=== PATIENT | female | born 1990 | race Caucasian/White ===

== ENCOUNTER 2017-12-08 22:47 | Emergency (ER) | payer OTHER ==
[2017-12-08 22:52] VITALS: BP 117/73
== END 2017-12-08 23:43 | disposition left against medical advice (07) ==
LOC: ED 22:47
DX: S09.90XA Unspecified injury of head, initial encounter (principal); X58.XXXA Exposure to other specified factors, initial encounter; Y92.9 Unspecified place or not applicable; Z53.21 Procedure and treatment not carried out due to patient leaving prior to being seen by health care provider

== ENCOUNTER 2017-12-09 16:42 | Emergency (ER) | payer MEDICAID, OTHER ==
[2017-12-09 16:55] VITALS: BP 105/58
--- NOTE | 2017-12-09 17:59 | UC ---
Head Injury HPI - HPI Summary HPI Summary: Slipped and fell backward last night hitting back of head no loc---has felt tired and head achey all day--no fevers, chills, nausea or vomiting - History Of Current Complaint Chief Complaint: UCHeadInjury Stated Complaint: HEAD INJURY Time Seen by Provider: 12/09/17 17:52 Hx Obtained From: Patient Hx Last Menstrual Period: months ?: No Mechanism Of Injury: fall Onset/Duration: Sudden Onset, Other - happened 1 day ago Severity Currently: Mild Severity Initially: Moderate Character: Dull Aggravating Factor(s): Nothing Alleviating Factor(s): Nothing Associated Signs And Symptoms: Positive: Neck Pain - muscles on right and left side of neck no bone tenderness - Allergies/Home Medications Allergies/Adverse Reactions: Allergies Allergy/AdvReac Type Severity Reaction Status Date / Time Doxycycline AdvReac Vomiting Verified 12/09/17 16:55 Home Medications: Home Medications Escitalopram Oxalate [Lexapro 20 mg] 15 mg PO DAILY 12/09/17 [History Confirmed 12/09/17] PMH/Surg Hx/FS Hx/Imm Hx Previously Healthy: Yes Other History Of: Negative For: Anticoagulant Therapy - Surgical History Surgical History: Yes Surgery Procedure, Year, and Place: , tooth surgery - Family History Known Family History: Positive: Other - fibromyalgia - Social History Occupation: Employed Full-time Lives: With Family Alcohol Use: Occasionally Substance Use Type: None Substance Use Comment - Amount & Last Used: hooka Smoking Status (MU): Former Smoker Have You Smoked in the Last Year: No - Immunization History Most Recent Influenza Vaccination: 09/18/15 Most Recent Tetanus Shot: 07/26/15 Most Recent Pneumonia Vaccination: not indicated Review of Systems Constitutional: Negative Skin: Negative Eyes: Negative ENT: Negative Respiratory: Negative Cardiovascular: Negative Gastrointestinal: Negative Genitourinary: Negative Motor: Negative Neurovascular: Negative Musculoskeletal: Myalgia - muscles in her neck Neurological: Negative Psychological: Negative Is Patient Immunocompromised?: No All Other Systems Reviewed And Are Negative: Yes Physical Exam Triage Information Reviewed: Yes Appearance: Well-Appearing, No Pain Distress, Well-Nourished Vital Signs: Initial Vital Signs Temp 98.1 F 12/09/17 16:48 Pulse 78 12/09/17 16:48 Resp 16 12/09/17 16:48 BP 105/58 12/09/17 16:48 Pulse Ox 99 12/09/17 16:48 Vital Signs Reviewed: Yes Eye Exam: Normal Eyes: Positive: Conjunctiva Clear, Other: - perrla, eomi, fundascopic exam wnl ENT Exam: Normal ENT: Positive: Normal ENT inspection, Hearing grossly normal, Pharynx normal, TMs normal, Uvula midline. Negative: Nasal congestion, Nasal drainage, TM bulging, TM dull, TM red, Tonsillar swelling, Trismus, Muffled voice, Hoarse voice, Dental tenderness, Sinus tenderness Dental Exam: Normal Neck exam: Normal Neck: Positive: Supple, Nontender, No Lymphadenopathy Respiratory Exam: Normal Respiratory: Positive: Chest non-tender, Lungs clear, Normal breath sounds, No respiratory distress, No accessory muscle use Cardiovascular Exam: Normal Cardiovascular: Positive: RRR, No Murmur, Pulses Normal, Brisk Capillary Refill Abdominal Exam: Normal Abdomen Description: Positive: Nontender, No Organomegaly, Soft. Negative: CVA Tenderness (R), CVA Tenderness (L) Bowel Sounds: Positive: Present Musculoskeletal Exam: Normal Musculoskeletal: Positive: Strength Intact, ROM Intact, No Edema Neurological Exam: Normal Neurological: Positive: Alert, Muscle Tone Normal Psychological Exam: Normal Skin Exam: Normal Head Injury Course/Dx - Course Course Of Treatment: rest tylenol ibuprofen follow with pcp prn - Differential Dx/Diagnosis Provider Diagnoses: concussion, hematoma Discharge - Discharge Plan Condition: Stable Disposition: HOME Patient Education Materials: Concussion (ED), Post Concussion Syndrome (ED) Referrals: Miranda Isidro NP [Primary Care Provider] - If Needed
== END 2017-12-09 18:17 | disposition home or self-care (01) ==
LOC: UCEAST 16:42
DX: S06.0X0A Concussion without loss of consciousness, initial encounter (principal); S00.93XA Contusion of unspecified part of head, initial encounter; W01.0XXA Fall on same level from slipping, tripping and stumbling without subsequent striking against object, initial encounter; Y93.9 Activity, unspecified; Y92.9 Unspecified place or not applicable; Z88.1 Allergy status to other antibiotic agents; Z87.891 Personal history of nicotine dependence
CPT/HCPCS: 99211; G0463

== ENCOUNTER 2018-06-18 09:51 | Emergency (ER) | payer OTHER ==
[2018-06-18 10:00] VITALS: BP 97/59
--- NOTE | 2018-06-18 10:09 | UC ---
Throat Pain/Nasal Ernesto HPI - HPI Summary HPI Summary: 27 yo female presents with sinus pain/pressure/congestion, post nasal drip, and headache all getting increasingly worse for the last 5 days. She has felt hot and cold at times, but has not taken her temperature. Has been taking OTC cold and sinus medication without relief. Denies cough, SOB, dizziness. - History of Current Complaint Chief Complaint: UCRespiratory Stated Complaint: SINUS CONGESTION Time Seen by Provider: 06/18/18 10:09 Hx Obtained From: Patient Hx Last Menstrual Period: iud Onset/Duration: Gradual Onset Severity: Moderate Pain Intensity: 5 Pain Scale Used: 0-10 Numeric - Allergies/Home Medications Allergies/Adverse Reactions: Allergies Allergy/AdvReac Type Severity Reaction Status Date / Time doxycycline Allergy Nausea Verified 06/18/18 10:00 PMH/Surg Hx/FS Hx/Imm Hx Previously Healthy: Yes Psychological History: Anxiety Other History Of: Negative For: Anticoagulant Therapy - Surgical History Surgical History: Yes Surgery Procedure, Year, and Place: , tooth surgery - Family History Known Family History: Positive: Other - fibromyalgia - Social History Occupation: Employed Full-time Lives: With Family Alcohol Use: Occasionally Substance Use Type: None Substance Use Comment - Amount & Last Used: hooka Smoking Status (MU): Former Smoker Have You Smoked in the Last Year: No - Immunization History Most Recent Influenza Vaccination: 09/18/15 Most Recent Tetanus Shot: 07/26/15 Most Recent Pneumonia Vaccination: not indicated Review of Systems Constitutional: Chills Skin: Negative Eyes: Negative ENT: Sore Throat, Nasal Discharge, Sinus Congestion, Sinus Pain/Tenderness Respiratory: Negative Cardiovascular: Negative Neurovascular: Negative Neurological: Negative Psychological: Negative All Other Systems Reviewed And Are Negative: Yes Physical Exam - Summary Physical Exam Summary: GENERAL: NAD. WDWN. No pain distress. SKIN: No rashes, sores, lesions, or open wounds. HEENT: Head: AT/NC Eyes: EOM intact. Conjunctiva clear without inflammation or discharge. Ears: Hearing grossly normal. TMs intact, no bulging, erythema, or edema. Nose: Nasal mucosa moderately swollen and erythematous with yellow/ clear discharge. TTP maxillary and frontal sinus. Throat: Posterior oropharynx without exudates, erythema, or tonsillar enlargement. Uvula midline. NECK: Supple. Nontender. No lymphadenopathy. CHEST: CTAB. No r/r/w. No accessory muscle use. Breathing comfortably and in no distress. CV: RRR. Without m/r/g. Pulses intact. Brisk cap refill. NEURO: Alert. CN II-XII grossly intact. PSYCH: Age appropriate behavior. Triage Information Reviewed: Yes Vital Signs: Initial Vital Signs Temp 98 F 06/18/18 09:57 Pulse 70 06/18/18 09:57 Resp 16 06/18/18 09:57 BP 97/59 06/18/18 09:57 Pulse Ox 100 06/18/18 09:57 Throat Pain/Nasal Course/Dx - Course Course Of Treatment: Sinusitis - Differential Dx/Diagnosis Provider Diagnoses: sinusitis Discharge - Sign-Out/Discharge Documenting (check all that apply): Patient Departure - Discharge Plan Condition: Stable Disposition: HOME Prescriptions: Amoxicillin/Clavulanate TAB* [Augmentin TAB 875*] 875 mg PO BID #20 tab Fluticasone NASAL SPRAY 50MCG* [Flonase NASAL SPRAY 50MCG*] 2 spray BOTH NARES DAILY #1 btl Patient Education Materials: Sinusitis (ED) Forms: *Work Release Referrals: Mirnada Isidro NP [Primary Care Provider] - Additional Instructions: If you develop a fever, shortness of breath, chest pain, new or worsening symptoms - please call your PCP or go to the ED. - Billing Disposition and Condition Condition: STABLE Disposition: Home
== END 2018-06-18 10:42 | disposition home or self-care (01) ==
LOC: UCEAST 09:51
DX: J32.9 Chronic sinusitis, unspecified (principal); Z88.1 Allergy status to other antibiotic agents; Z87.891 Personal history of nicotine dependence
CPT/HCPCS: 99212; G0463

== ENCOUNTER 2018-07-19 17:32 | Emergency (ER) | payer OTHER ==
[2018-07-19 17:49] VITALS: BP 98/57
--- NOTE | 2018-07-19 18:17 | UC ---
Ear Complaint HPI - HPI Summary HPI Summary: The patient is a 27 y/o F presenting to [facility] c/o bilateral ear pain and itching for the last few weeks. The pain is rated 4/10 in severity. She has also noticed some discharge from the ears especially in the morning. She denies fevers, chills, and rashes. She has some sinus congestion. - History of Current Complaint Chief Complaint: UCEar Stated Complaint: BLOOD IN EAR Time Seen by Provider: 07/19/18 18:12 Hx Obtained From: Patient Hx Last Menstrual Period: IUD Onset/Duration: Sudden Onset, Lasting Weeks, Still Present Severity Initially: Moderate Severity Currently: Moderate Pain Intensity: 4 Pain Scale Used: 0-10 Numeric Aggravating Factors: Nothing Alleviating Factors: Nothing - Allergies/Home Medications Allergies/Adverse Reactions: Allergies Allergy/AdvReac Type Severity Reaction Status Date / Time doxycycline Allergy Nausea Verified 07/19/18 17:49 PMH/Surg Hx/FS Hx/Imm Hx Other Respiratory History: NEGATIVE: asthma Psychological History: Anxiety, Depression Other History Of: Negative For: Anticoagulant Therapy - Surgical History Surgical History: Yes Surgery Procedure, Year, and Place: , tooth surgery - Family History Known Family History: Positive: Other - fibromyalgia - Social History Alcohol Use: Occasionally Substance Use Type: None Substance Use Comment - Amount & Last Used: hooka Smoking Status (MU): Former Smoker Have You Smoked in the Last Year: No - Immunization History Most Recent Influenza Vaccination: 09/18/15 Most Recent Tetanus Shot: 07/26/15 Most Recent Pneumonia Vaccination: not indicated Review of Systems Constitutional: Other - NEGATIVE: fever, chills Skin: Other - NEGATIVE: rashes ENT: Ear Ache - bilateral with itching, Sinus Congestion, Other - drainage from ears All Other Systems Reviewed And Are Negative: Yes Physical Exam - Summary Physical Exam Summary: VITAL SIGNS: Reviewed. GENERAL: Patient is a well-developed and nourished female who is lying comfortable in the stretcher. Patient is not in any acute respiratory distress. HEAD AND FACE: Normocephalic EYES: PERRLA, EOMI x 2. EARS: Hearing grossly intact, left more than right ear canal swelling and discharge. MOUTH: Oropharynx within normal limits. NECK: Supple, trachea is midline, no adenopathy, no JVD, no carotid bruit. CHEST: Symmetric, no tenderness at palpation LUNGS: Clear to auscultation bilaterally. No wheezing or crackles. CVS: Regular rate and rhythm, S1 and S2 present, no murmurs or gallops appreciated. ABDOMEN: Soft, non-tender. Bowel sounds are normal. No abdominal abnormal pulsations. EXTREMITIES: Full ROM in all major joints, no edema, no cyanosis or clubbing. NEURO: Alert and oriented x 3. No acute neurological deficits. Speech is normal and follows commands. SKIN: Dry and warm. Triage Information Reviewed: Yes Vital Signs: Initial Vital Signs Temp 98.7 F 07/19/18 17:45 Pulse 60 07/19/18 17:45 Resp 12 07/19/18 17:45 BP 98/57 07/19/18 17:45 Pulse Ox 100 07/19/18 17:45 Vital Signs Reviewed: Yes Ear Complaint Course/Dx - Course Course Of Treatment: This patient is a 27-year-old female who presents to the urgent care with chief complaint of bilateral ear pain. The patient reports that she has been using Q-tips yesterday and also a beta gaurav. In the physical exam, the patient has a bilateral otitis externa. The patient was given Corticosporin and she will be discharged home with follow-up with PCP. She was instructed to return to the urgent care or the emergency department if the symptoms worsen. She understands and agrees. - Differential Dx/Diagnosis Provider Diagnoses: bilateral otitis externa Discharge - Sign-Out/Discharge Documenting (check all that apply): Patient Departure - Patient will be discharged home. All imaging exams completed and their final reports reviewed: Yes - Discharge Plan Condition: Stable Disposition: HOME Patient Education Materials: Otitis Externa (DC) Referrals: Miranda Isidro NP [Primary Care Provider] - 3 Days Additional Instructions: Follow up with your primary care physician in 2-3 days. Return to urgent care or the emergency department for any new or worsening symptoms. - Billing Disposition and Condition Condition: STABLE Disposition: Home - Attestation Statements Document Initiated by Scribe: Yes Documenting Scribe: Antoinette Gilliam Provider For Whom Gerardo is Documenting (Include Credential): Sina Loera MD Scribe Attestation: Antoinette Sanchez, selvinibed for Sina Loera MD on 07/21/18 at 0736. Scribe Documentation Reviewed: Yes Provider Attestation: The documentation as recorded by the selvinibeAntoinette accurately reflects the service I personally performed and the decisions made by me, Sina Loera MD
[2018-07-19] MEDS ORDERED: Ciproflox/Dexameth OTIC.SUSP* 7.5 ML BTL BOTH EARS ONE (18:20)
[2018-07-19] MEDS ORDERED: Neomyc/Polym/HC 1% OTIC SUSP* **OTIC BOTH EARS ONE (18:37)
--- NOTE | 2018-07-20 11:00 | UC ---
Discharge - Sign-Out/Discharge Documenting (check all that apply): Post-Discharge Follow Up All imaging exams completed and their final reports reviewed: No Studies - Discharge Plan Condition: Stable Disposition: HOME Patient Education Materials: Otitis Externa (DC) Referrals: Miranda Isidro NP [Primary Care Provider] - 3 Days Additional Instructions: Follow up with your primary care physician in 2-3 days. Return to urgent care or the emergency department for any new or worsening symptoms. - Billing Disposition and Condition Condition: STABLE Disposition: Home
== END 2018-07-19 18:50 | disposition home or self-care (01) ==
LOC: UCEAST 17:32
DX: H60.93 Unspecified otitis externa, bilateral (principal); Z88.1 Allergy status to other antibiotic agents; Z87.891 Personal history of nicotine dependence
CPT/HCPCS: 99212; A9270-GY; G0463

== ENCOUNTER 2018-08-25 12:15 | Emergency (ER) | payer OTHER ==
[2018-08-25 12:31] VITALS: BP 132/79
--- NOTE | 2018-08-25 12:38 | UC ---
UC General HPI - HPI Summary HPI Summary: This pt is a 27 y/o female presenting to [facility] c/o sinus congestion, bilateral ear pain, and headache since 3 days ago. Pt additionally reports sinus pain, decreased hearing. Denies fever, cough, SOB, nausea, vomiting. No PMHx. She notes occasional alcohol use. Pt is a former smoker. - History of Current Complaint Stated Complaint: SINUS COMPLAINT Time Seen by Provider: 08/25/18 12:25 Hx Obtained From: Patient Hx Last Menstrual Period: IUD in place, unsure Onset/Duration: Lasting Days, Still Present Timing: Constant Current Severity: Moderate Pain Intensity: 5 Pain Location at: head Character: headache Aggravating: nothing Alleviating: nothing Associated Signs & Symptoms: Positive: Headache, Other - POS: sinus congestion, decreased hearing, bilateral ear pain, sinus pain. Negative: Abdominal Pain, Cough, Chest Pain, Fever, SOB, Vomiting - Allergy/Home Medications Allergies/Adverse Reactions: Allergies Allergy/AdvReac Type Severity Reaction Status Date / Time doxycycline Allergy Nausea Verified 08/25/18 12:31 PMH/Surg Hx/FS Hx/Imm Hx Previously Healthy: Yes Other Endocrine History: DENIES: diabetes Other Cardiovascular History: DENIES: HTN Other History Of: Negative For: Anticoagulant Therapy - Surgical History Surgical History: Yes Surgery Procedure, Year, and Place: , tooth surgery - Family History Known Family History: Positive: Other - fibromyalgia - Social History Alcohol Use: Occasionally Substance Use Type: None Substance Use Comment - Amount & Last Used: hooka Smoking Status (MU): Former Smoker Have You Smoked in the Last Year: No - Immunization History Most Recent Influenza Vaccination: 09/18/15 Most Recent Tetanus Shot: 07/26/15 Most Recent Pneumonia Vaccination: not indicated Review of Systems Constitutional: Negative Skin: Negative Eyes: Negative ENT: Ear Ache - bilateral, Sinus Congestion, Sinus Pain/Tenderness, Other - POS : decreased hearing Respiratory: Negative Cardiovascular: Negative Gastrointestinal: Negative Genitourinary: Negative Motor: Negative Neurovascular: Negative Musculoskeletal: Negative Neurological: Headache Psychological: Negative Is Patient Immunocompromised?: No All Other Systems Reviewed And Are Negative: Yes Physical Exam - Summary Physical Exam Summary: VITAL SIGNS: Reviewed. GENERAL: Patient is a well-developed and nourished female who is lying comfortable in the stretcher. Patient is not in any acute respiratory distress. HEAD AND FACE: Normocephalic EYES: PERRLA, EOMI x 2. EARS: Hearing grossly intact. MOUTH: Pharyngeal erythema. NECK: Supple, trachea is midline, no adenopathy, no JVD, no carotid bruit. CHEST: Symmetric, no tenderness at palpation LUNGS: Clear to auscultation bilaterally. No wheezing or crackles. CVS: Regular rate and rhythm, S1 and S2 present, no murmurs or gallops appreciated. ABDOMEN: Soft, non-tender. Bowel sounds are normal. No abdominal abnormal pulsations. EXTREMITIES: Full ROM in all major joints, no edema, no cyanosis or clubbing. NEURO: Alert and oriented x 3. No acute neurological deficits. Speech is normal and follows commands. SKIN: Dry and warm Triage Information Reviewed: Yes Vital Signs: Initial Vital Signs Temp 98.3 F 08/25/18 12:22 Pulse 75 08/25/18 12:22 Resp 18 08/25/18 12:22 BP 132/79 08/25/18 12:22 Pulse Ox 100 08/25/18 12:22 Vital Signs Reviewed: Yes Course/Dx - Course Course Of Treatment: Pt is a 27 y/o female presenting to [facility] c/o sinus congestion, bilateral ear pain, and headache since 3 days ago. Pt additionally reports sinus pain, decreased hearing. Denies fever, cough, SOB, nausea, vomiting. No PMHx. Rapid strep is negative. I believe the patient has a viral infection. Therefore the patient was given Flonase and Sudafed for the nasal congestion. The patient will be discharged home with follow-up with primary care physician. She was recommended to return to the urgent care if she develops any headache, fevers, nausea vomiting. The patient understands and agrees. Pt is hemodynamically stable, alert and oriented x3. The patient was found to have increased blood pressure in UC. The patient will follow up with PCP for better control of BP. - Differential Dx - Multi-Symptom Provider Diagnoses: URI Discharge - Sign-Out/Discharge Documenting (check all that apply): Patient Departure - Discharge home All imaging exams completed and their final reports reviewed: No Studies - Discharge Plan Condition: Stable Disposition: HOME Prescriptions: Fluticasone NASAL SPRAY 50MCG* [Flonase NASAL SPRAY 50MCG*] 2 spray BOTH NARES DAILY #1 btl Pseudoephedrine TAB* [Sudafed TAB*] 60 mg PO BID #10 tab Patient Education Materials: Upper Respiratory Infection (DC), Cold Symptoms ( ED) Referrals: Miranda Isidro NP [Primary Care Provider] - Additional Instructions: .Take medications as instructed and adhere to plan Take Acetaminophen or ibuprofen for pain or fever Increase your fluid intake Return to the or go to the emergency department if symptoms worsen Follow-up with primary care physician in next 2-3 days - Billing Disposition and Condition Condition: STABLE Disposition: Home - Attestation Statements Document Initiated by Yonasibe: Yes Documenting Scribe: Mandi Nails Provider For Whom Gerardo is Documenting (Include Credential): Sina Loera MD Scribe Attestation: Mandi Sanchez, scribed for Sina Loera MD on 08/25/18 at 1420. Scribe Documentation Reviewed: Yes Provider Attestation: The documentation as recorded by the Mandi cid accurately reflects the service I personally performed and the decisions made by , Sina Loera MD
== END 2018-08-25 13:05 | disposition home or self-care (01) ==
LOC: UCEAST 12:15
DX: J06.9 Acute upper respiratory infection, unspecified (principal); Z88.1 Allergy status to other antibiotic agents; Z87.891 Personal history of nicotine dependence
CPT/HCPCS: 87651; 99212; G0463

== ENCOUNTER 2019-02-04 09:37 | Emergency (ER) | payer OTHER ==
--- NOTE | 2019-02-04 11:46 | UC ---
Throat Pain/Nasal Ernesto HPI - HPI Summary HPI Summary: 28 y/o female presents to the urgent care c/o nasal congestion, sinus pressure and pain w/ green nasal discharge and PND for the past week. Pain is 5/10. Pt has taken Sudafed and Dayquill PO to alleviate symptoms w/o any improvement. Pt w/ PMHX of recurrent sinusitis. Pt denies fever. dizziness. ear pain, SOB, chest pain, abdominal pain, N/V/D. - History of Current Complaint Chief Complaint: UCRespiratory Stated Complaint: SINUS ISSUE Time Seen by Provider: 02/04/19 11:32 Hx Obtained From: Patient Hx Last Menstrual Period: iud ?: No Onset/Duration: Gradual Onset, Lasting Weeks - 1 week, Still Present, Worse Since - 3 days Severity: Moderate Pain Intensity: 4 Pain Scale Used: 0-10 Numeric Cough: Nonproductive Associated Signs & Symptoms: Positive: Sinus Discomfort, Nasal Discharge. Negative: Wheezing, Fever Related History: Seasonal Allergies - Epiglottits Risk Factors Epiglottis Risk Factors: Negative - Allergies/Home Medications Allergies/Adverse Reactions: Allergies Allergy/AdvReac Type Severity Reaction Status Date / Time doxycycline Allergy Nausea Verified 02/04/19 09:47 PMH/Surg Hx/FS Hx/Imm Hx Previously Healthy: Yes - Pt denies PMHX Other History Of: Negative For: Anticoagulant Therapy - Surgical History Surgical History: Yes Surgery Procedure, Year, and Place: , tooth surgery - Family History Known Family History: Positive: Hypertension, Diabetes, Other - fibromyalgia - Social History Occupation: Employed Full-time Lives: With Family Alcohol Use: Occasionally Substance Use Type: None Substance Use Comment - Amount & Last Used: hooka Smoking Status (MU): Former Smoker Have You Smoked in the Last Year: No - Immunization History Most Recent Influenza Vaccination: 09/18/15 Most Recent Tetanus Shot: 07/26/15 Most Recent Pneumonia Vaccination: not indicated Review of Systems All Other Systems Reviewed And Are Negative: Yes Constitutional: Positive: Negative Skin: Positive: Negative Eyes: Positive: Negative ENT: Positive: Nasal Discharge - green, Sinus Congestion, Sinus Pain/Tenderness , Other - Moderate green PND Respiratory: Positive: Negative Cardiovascular: Positive: Negative Gastrointestinal: Positive: Negative Genitourinary: Positive: Negative Motor: Positive: Negative Neurovascular: Positive: Negative Musculoskeletal: Positive: Negative Neurological: Positive: Headache Psychological: Positive: Negative Is Patient Immunocompromised?: No Physical Exam - Summary Physical Exam Summary: Vitals: reviewed General: Well developed, well-nourished female patient with NAD. Head and face: Normocephalic and atraumatic, Positive tenderness over the frontal and maxillary sinuses.. Eyes: PERRLA, EOMI x 2. Normal conjunctiva. No eye discharge. ENT: Ears and TM with normal limits. Nose: edematous and erythematous nasal mucosa with with yellowish discharge and erythematous mucosa. Pharynx with erythema, no exudate. green PND Neck: Supple, no JVD, no carotid bruits and no lymphadenopathy. Lungs: clear, no rales, no rhonchi, no wheezes. CVS: RRR, S1 and S2 present no murmurs or gallops appreciated. Abdomen: soft nontender with positive bowel sounds. Extremities: no edema noted. Neuro: WNL. Skin: warm and dry Triage Information Reviewed: Yes Vital Signs: Initial Vital Signs Temp 98 F 02/04/19 09:44 Pulse 72 02/04/19 09:44 Resp 16 02/04/19 09:44 BP 89/56 02/04/19 09:44 Pulse Ox 100 02/04/19 09:44 Throat Pain/Nasal Course/Dx - Course Course Of Treatment: 28 y/o female presents to the urgent care c/o nasal congestion, sinus pressure and pain w/ green nasal discharge and PND for the past week. Pain is 5/10. Pt has taken Sudafed and Dayquill PO to alleviate symptoms w/o any improvement. Pt w/ PMHX of recurrent sinusitis. Pt denies fever. dizziness. ear pain, SOB, chest pain, abdominal pain, N/V/D. Hx obtained. Pt with 1 week of symptoms getting worse. Pt Rx Amoxicillin PO and flonase nasal spray. Advised to continue taking Mucinex PO for cough. Discharge instructions explained to Pt. Advised to Return to the clinic or PCP if symptoms do not improve.Pt understood and agreed with plan of care. - Differential Dx/Diagnosis Differential Diagnosis/HQI/PQRI: Influenza, Laryngitis, Pharyngitis, Sinusitis, URI Provider Diagnosis: Acute bacterial sinusitis Discharge - Sign-Out/Discharge Documenting (check all that apply): Patient Departure - D/C home All imaging exams completed and their final reports reviewed: No Studies - Discharge Plan Condition: Stable Disposition: HOME Prescriptions: Amoxicillin PO (*) [Amoxicillin 875 MG (*)] 875 mg PO BID #20 tab Fluticasone NASAL SPRAY 50MCG* [Flonase NASAL SPRAY 50MCG*] 2 spray BOTH NARES DAILY #1 btl Patient Education Materials: Sinusitis (ED) Referrals: Miranda Isidro TECHNICIAN ANATOMIC PATHOLOGY [Primary Care Provider] - 3 Days Additional Instructions: 1- Please increase fluid intake and rest. take full course of antibiotic to avoid resistance 2-Use Flonase as directed to help drain fluid. Also buy saline drops to clear sinuses 3- continue taking Mucinex PO tp alleviate symptoms of cough 4--Return to the clinic or PCP in 3 days if symptoms do not improve for further management and treatment - Billing Disposition and Condition Condition: STABLE Disposition: Home
[2019-02-04 12:23] LABS: Influenza A Molecular NEGATIVE (Negative); Influenza B Molecular NEGATIVE (Negative)
[2019-02-04 12:34] VITALS: BP 107/65
== END 2019-02-04 12:33 | disposition home or self-care (01) ==
LOC: UCEAST 09:37
DX: J01.80 Other acute sinusitis (principal); Z87.891 Personal history of nicotine dependence; Z88.1 Allergy status to other antibiotic agents
CPT/HCPCS: 99212; G0463

== ENCOUNTER 2019-09-12 16:06 | Emergency (ER) | payer OTHER ==
[2019-09-12 16:13] VITALS: BP 98/55
--- NOTE | 2019-09-12 16:18 | UC ---
Throat Pain/Nasal Ernesto HPI - HPI Summary HPI Summary: Cold symptoms with head congestion and runny nose for 3 days. - History of Current Complaint Chief Complaint: UCRespiratory Stated Complaint: SINUS CONGESTION Time Seen by Provider: 09/12/19 16:11 Hx Obtained From: Patient Hx Last Menstrual Period: IUD ?: No Onset/Duration: Gradual Onset Severity: Mild Pain Intensity: 4 Cough: None Associated Signs & Symptoms: Positive: Sinus Discomfort, Nasal Discharge Related History: Seasonal Allergies - Allergies/Home Medications Allergies/Adverse Reactions: Allergies Allergy/AdvReac Type Severity Reaction Status Date / Time doxycycline Allergy Nausea Verified 09/12/19 16:14 PMH/Surg Hx/FS Hx/Imm Hx Previously Healthy: Yes Other History Of: Negative For: Anticoagulant Therapy - Surgical History Surgical History: Yes Surgery Procedure, Year, and Place: , tooth surgery - Family History Known Family History: Positive: Hypertension, Diabetes, Other - fibromyalgia - Social History Lives: With Family Alcohol Use: Occasionally Substance Use Type: Marijuana Substance Use Comment - Amount & Last Used: hooka Smoking Status (MU): Current Some Day Smoker Have You Smoked in the Last Year: No - Immunization History Most Recent Influenza Vaccination: 09/18/15 Most Recent Tetanus Shot: 07/26/15 Most Recent Pneumonia Vaccination: not indicated Review of Systems All Other Systems Reviewed And Are Negative: Yes ENT: Positive: Nasal Discharge, Sinus Congestion Is Patient Immunocompromised?: No Physical Exam Triage Information Reviewed: Yes Appearance: Well-Appearing, No Pain Distress, Well-Nourished Vital Signs: Initial Vital Signs Temp 97.7 F 09/12/19 16:11 Pulse 90 09/12/19 16:11 Resp 16 09/12/19 16:11 BP 98/55 09/12/19 16:11 Pulse Ox 99 09/12/19 16:11 Vital Signs Reviewed: Yes Eyes: Positive: Conjunctiva Clear ENT: Positive: Pharynx normal, Nasal congestion, Nasal drainage - Clear nasal coryza, TMs normal, Uvula midline Neck: Positive: Supple, Nontender, No Lymphadenopathy Respiratory: Positive: Lungs clear, Normal breath sounds, No respiratory distress, No accessory muscle use Cardiovascular: Positive: RRR, No Murmur, Pulses Normal, Brisk Capillary Refill Musculoskeletal Exam: Normal Neurological Exam: Normal Psychological Exam: Normal Skin Exam: Normal Throat Pain/Nasal Course/Dx - Course Course Of Treatment: I believe this is a viral URI. Pt does have a history of seasonal allergies, so I am going to treat her with Flonase nasal spray to see if that improves symptoms. - Differential Dx/Diagnosis Provider Diagnosis: URI (upper respiratory infection) Discharge ED - Sign-Out/Discharge Documenting (check all that apply): Patient Departure All imaging exams completed and their final reports reviewed: No Studies - Discharge Plan Condition: Good Disposition: HOME Prescriptions: Fluticasone NASAL SPRAY 50MCG* [Flonase NASAL SPRAY 50MCG*] 2 spray BOTH NARES DAILY 7 Days #1 btl Patient Education Materials: Upper Respiratory Infection (DC) Referrals: Miranda Isidro PUMPMAN [Primary Care Provider] - Additional Instructions: Increase fluids, continue your present medications, follow up with your primary care provider if no improvement by Thursday. - Billing Disposition and Condition Condition: GOOD Disposition: Home
== END 2019-09-12 16:30 | disposition home or self-care (01) ==
LOC: UCEAST 16:06
DX: J06.9 Acute upper respiratory infection, unspecified (principal); F17.200 Nicotine dependence, unspecified, uncomplicated; Z88.1 Allergy status to other antibiotic agents
CPT/HCPCS: 99212; G0463